=== PATIENT | male | born 1955 | race Caucasian/White ===

== ENCOUNTER 2016-06-30 23:27 | Emergency (ER) | payer MEDICARE, OTHER ==
[~2016-06-30] VITALS: Ht 170.2 cm; Wt 112.0 kg
[~2016-06-30 23:27] MED LIST: CARD4TAB2 PO
[2016-06-30 23:37] VITALS: BP 146/87; PULSE 94; RESP 18; TEMP 98.1; O2SAT 96
[2016-07-01] MEDS ORDERED: SODIUM CHLORIDE 0.9% FLUSH 5 ML FLUSH IVF PRN
[2016-07-01] MEDS ORDERED: methylPREDNISolone SOD SUCC 125 MG/2 ML VIAL IVP ONE
--- NOTE | 2016-07-01 | PD ---
HPI Chief Complaint: Respiratory Symptoms Time Seen by Provider: 23:50 Travel History International Travel<30 days: No Contact w/Intl Traveler<30days: No History of Present Illness HPI Patient is a 61-year-old male who presents to emergency room for evaluation of cough, congestion, fevers and chills. Patient reports that since Tuesday, he has been wheezing and has had a productive cough. Reports that he has been having subjective fevers and chills. Patient reports that he feels achy all over, reports no sick contacts. Patient reports that he try taking Mucinex for relief of symptoms, reports that Mucinex made him feel sick. Patient reports that he bought amoxicillin from the pet store today and took a dose of this. Patient reports no relief of symptoms at this time. Patient denies any chest pain at this time. Patient reports that he has been feeling so short of breath, he has been feeling near syncopal episodes. Patient also reports that he is HIV positive, he is on antivirals at this time. Patient reports that his HIV is undetectable at this time, reports that his last CD4 count was around 540. PFSH Past Medical History Autoimmune Disease: Yes (HIV) Social History Alcohol Use: No Tobacco Use: No Substance Use: No Allergies-Medications (Allergen,Severity, Reaction): Coded Allergies: No Known Allergies (Unverified , 07/01/16) Reported Meds & Prescriptions Reported Meds & Active Scripts Active Proair Hfa 8.5 GM Inh (Albuterol Sulfate) 90 Mcg/Act Aer 2 Puff INH Q4-6H PRN 108 mcg/actuation Azithromycin 500 Mg Tab 500 Mg PO DAILY Prednisone 20 Mg Tab 20 Mg PO BID 5 Days Cardura (Doxazosin Mesylate) 4 Mg Tab 4 Mg PO DAILY Reported Prezista (Darunavir) 800 Mg Tab 800 Mg PO DAILY Genvoya (Baegdczkffqp-Tffornapqc-Qwarkplfjfsi-Tenofvir) [phone] Mg Tab 1 Tab PO DAILY Review of Systems General / Constitutional: Positive: Fever, Chills Eyes: No: Visual changes HENT: No: Headaches Cardiovascular: No: Chest Pain or Discomfort Respiratory: Positive: Cough, Shortness of Breath, Wheezing Gastrointestinal: No: Abdominal Pain Genitourinary: No: Dysuria Musculoskeletal: No: Pain Skin: No Rash Neurologic: No: Weakness Psychiatric: No: Depression Endocrine: No: Polydipsia Hematologic/Lymphatic: No: Easy Bruising Physical Exam Narrative GENERAL: Patient in moderate distress SKIN: Warm and dry. HEAD: Atraumatic. Normocephalic. EYES: Pupils equal and round. No scleral icterus. No injection or drainage. ENT: No nasal bleeding or discharge. Mucous membranes pink and moist. NECK: Trachea midline. No JVD. CARDIOVASCULAR: Regular rate and rhythm. No murmur appreciated. RESPIRATORY: Patient with diffuse wheezing on exam, patient short of breath on exam GASTROINTESTINAL: Abdomen soft, non-tender, nondistended. Hepatic and splenic margins not palpable. MUSCULOSKELETAL: No obvious deformities. No clubbing. No cyanosis. No edema. NEUROLOGICAL: Awake and alert. No obvious cranial nerve deficits. Motor grossly within normal limits. Normal speech. PSYCHIATRIC: Appropriate mood and affect; insight and judgment normal. Data Data Last Documented VS Orders Complete Blood Count With Diff (06/30/16 23:55) Comprehensive Metabolic Panel (06/30/16 23:55) B-Type Natriuretic Peptide (06/30/16 23:55) Act Partial Throm Time (Ptt) (06/30/16 23:55) Prothrombin Time / Inr (Pt) (06/30/16 23:55) Magnesium (Mg) (06/30/16 23:55) Ckmb (Isoenzyme) Profile (06/30/16 23:55) Troponin I (06/30/16 23:55) Urinalysis - C+S If Indicated (06/30/16 23:55) Influenzae A/B Antigen (06/30/16 23:55) Blood Culture (06/30/16 23:55) Iv Access Insert/Monitor (06/30/16 23:55) Electrocardiogram (06/30/16 23:55) Ecg Monitoring (06/30/16 23:55) Oximetry (06/30/16 23:55) Chest, Single Ap (06/30/16 23:55) Sodium Chloride 0.9% Flush (Ns Flush) (07/01/16 00:00) Methylprednisolone So Succ Inj (Solumedr (07/01/16 00:00) Albuterol-Ipratropium Neb (Duoneb Neb) (07/01/16 00:00) Lactic Acid Sepsis Protocol (07/01/16 00:17) Lactic Acid (07/01/16 00:17) CKMB (07/01/16 00:00) CKMB% (07/01/16 00:00) Azithromycin Inj (Zithromax Inj) (07/01/16 01:30) Ceftriaxone Inj (Rocephin Inj) (07/01/16 01:30) Albuterol Neb (Albuterol Neb) (07/01/16 02:45) Labs MDM Medical Decision Making Medical Screen Exam Complete: Yes Emergency Medical Condition: Yes Interpretation(s) Vital Signs Date Time Temp Pulse Resp B/P Pulse Ox O2 Delivery O2 Flow Rate FiO2 06/30/16 23:37 98.1 94 18 146/87 96 Differential Diagnosis Pneumonia, influenza, acute bronchitis, pneumothorax, arrhythmia, electrolyte abnormality Narrative Course Patient is a 61-year-old male with history of HIV which is undetectable, who presents to emergency room with complaints of increased cough, congestion, shortness of breath and wheezing since Tuesday. Patient denies any sick contacts, reports that he isn't feeling increasingly short of breath and reports that the buqj-jak-oljsppb medicines has not helped with his symptoms. Patient reports that his fevers are subjective, he isn't taking Tylenol to help with his fevers. Patient did take one dose of amoxicillin today as he has this for his fish. Patient is wheezing on exam, patient with moderate respiratory distress. 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 EKG ordered. IV steroids as well as nebulizer treatments ordered for patient. Labs as well as chest xray and blood cultures ordered Laboratory Tests Test 07/01/16 00:00 White Blood Count 4.3 TH/MM3 (4.0-11.0) Red Blood Count 4.83 MIL/MM3 (4.50-5.90) Hemoglobin 14.4 GM/DL (13.0-17.0) Hematocrit 43.6 % (39.0-51.0) Mean Corpuscular Volume 90.2 FL (80.0-100.0) Mean Corpuscular Hemoglobin 29.8 PG (27.0-34.0) Mean Corpuscular Hemoglobin 33.0 % Concent (32.0-36.0) Red Cell Distribution Width 14.6 % (11.6-17.2) Platelet Count 199 TH/MM3 (150-450) Mean Platelet Volume 7.9 FL (7.0-11.0) Neutrophils (%) (Auto) 40.5 % (16.0-70.0) Lymphocytes (%) (Auto) 39.2 % (9.0-44.0) Monocytes (%) (Auto) 16.5 % (0.0-8.0) Eosinophils (%) (Auto) 3.2 % (0.0-4.0) Basophils (%) (Auto) 0.6 % (0.0-2.0) Neutrophils # (Auto) 1.7 TH/MM3 (1.8-7.7) Lymphocytes # (Auto) 1.8 TH/MM3 (1.0-4.8) Monocytes # (Auto) 0.7 TH/MM3 (0-0.9) Eosinophils # (Auto) 0.1 TH/MM3 (0-0.4) Basophils # (Auto) 0.0 TH/MM3 (0-0.2) CBC Comment DIFF FINAL Differential Comment Prothrombin Time 11.4 SEC (9.8-11.6) Prothromb Time International 1.0 RATIO Ratio Activated Partial 27.4 SEC Thromboplast Time (24.3-30.1) Sodium Level 143 MEQ/L (136-145) Potassium Level 3.8 MEQ/L (3.5-5.1) Chloride Level 108 MEQ/L (98-107) Carbon Dioxide Level 26.7 MEQ/L (21.0-32.0) Anion Gap 8 MEQ/L (5-15) Blood Urea Nitrogen 15 MG/DL (7-18) Creatinine 1.00 MG/DL (0.60-1.30) Estimat Glomerular Filtration 76 ML/MIN (>89) Rate Random Glucose 97 MG/DL (74-106) Lactic Acid Level 0.8 mmol/L (0.4-2.0) Calcium Level 7.9 MG/DL (8.5-10.1) Magnesium Level 2.0 MG/DL (1.5-2.5) Total Bilirubin 0.5 MG/DL (0.2-1.0) Aspartate Amino Transf 19 U/L (15-37) (AST/SGOT) Alanine Aminotransferase 28 U/L (12-78) (ALT/SGPT) Alkaline Phosphatase 47 U/L (45-117) Total Creatine Kinase 280 U/L (39-308) Creatine Kinase MB 1.2 NG/ML (0.5-3.6) Troponin I LESS THAN 0.02 NG/ML (0.02-0.05) B-Type Natriuretic Peptide 5 PG/ML (0-100) Total Protein 6.9 GM/DL (6.4-8.2) Albumin 3.6 GM/DL (3.4-5.0) Microbiology Date/Time Procedure Status Source Growth 07/01/16 00:00 Aerobic Blood Culture Received Blood Peripheral Pending 07/01/16 00:00 Anaerobic Blood Culture Received Blood Peripheral Pending 07/01/16 00:15 Aerobic Blood Culture Received Blood Peripheral Pending 07/01/16 00:15 Anaerobic Blood Culture Received Blood Peripheral Pending 07/01/16 00:15 Influenza Types A,B Antigen (ELKIN) - Final Complete Nasal Aspirate NEGATIVE FOR FLU A AND B ANTIGEN.... Last Impressions Chest X-Ray 06/30/16 0995 Signed Impressions: Service Date/Time: June 00:06 - CONCLUSION: No acute cardiopulmonary disease identified. Bradley Downey MD Labs reviewed WBC 4.3 with no shift, lactic acid is 0.8, bmp: wnl, influenza neg bc pending X-ray of chest with no acute cardiopulmonary disease Patient is feeling 100% better at this time. Patient reports that he will acute discharge at this time. Patient does have an appointment with his primary care doctor on Tuesday, he'll bring a copy of all his lab work and x- rays to his doctor's appointment. Patient will follow-up with cultures today. Signs and symptoms of when to return to the emergency room was reviewed with patient in detail. Patient very appreciative of care. Diagnosis Primary Impression: Acute bronchitis Qualified Code: J20.9 - Acute bronchitis, unspecified organism Patient Instructions: General Instructions Departure Forms: Tests/Procedures, Work Release Enter return to work date: Jul 05, 2016 Additional Instructions: Please provide patient with a copy of his labwork at discharge Please take all medications as prescribed Please follow-up with your primary care doctor as scheduled Please follow-up with all cultures from today Return to the emergency room as needed or if symptoms progress or worsen Scripts Albuterol 8.5 GM Inh (Proair Hfa 8.5 GM Inh)90 Mcg/Act Aer2 Puff INH Q4-6H PRN ( SHORTNESS OF BREATH) #1 INHALER Ref 0 108 mcg/actuation Prov:Kim Hein DO 07/01/16 Azithromycin 500 Mg Sud116 Mg PO DAILY #7 TAB Ref 0 Prov:Kim Hein DO 07/01/16 Prednisone 20 Mg Tab20 Mg PO BID 5 Days Ref 0 Prov:Kim Hein DO 07/01/16 Disposition: 01 DISCHARGE HOME Condition: Stable Kim Hein DO Jul 01, 2016 00:00 Total Bilirubin 0.5 MG/DL (0.2-1.0) Aspartate Amino Transf 19 U/L (15-37) (AST/SGOT) Alanine Aminotransferase 28 U/L (12-78) (ALT/SGPT) Alkaline Phosphatase 47 U/L (45-117) Total Creatine Kinase 280 U/L (39-308) Creatine Kinase MB 1.2 NG/ML (0.5-3.6) Troponin I LESS THAN 0.02 NG/ML (0.02-0.05) B-Type Natriuretic Peptide 5 PG/ML (0-100) Total Protein 6.9 GM/DL (6.4-8.2) Albumin 3.6 GM/DL (3.4-5.0) Microbiology Date/Time Procedure Status Source Growth 07/01/16 00:00 Aerobic Blood Culture Received Blood Peripheral Pending 07/01/16 00:00 Anaerobic Blood Culture Received Blood Peripheral Pending 07/01/16 00:15 Aerobic Blood Culture Received Blood Peripheral Pending 07/01/16 00:15 Anaerobic Blood Culture Received Blood Peripheral Pending 07/01/16 00:15 Influenza Types A,B Antigen (ELKIN) - Final Complete Nasal Aspirate NEGATIVE FOR FLU A AND B ANTIGEN.... Last Impressions Chest X-Ray 06/30/16 0533 Signed Impressions: Service Date/Time: June 00:06 - CONCLUSION: No acute cardiopulmonary disease identified. Bradley Downey MD Labs reviewed WBC 4.3 with no shift, lactic acid is 0.8, bmp: wnl, influenza neg bc pending X-ray of chest with no acute cardiopulmonary disease Patient is feeling 100% better at this time. Patient reports that he will acute discharge at this time. Patient does have an appointment with his primary care doctor on Tuesday, he'll bring a copy of all his lab work and x- rays to his doctor's appointment. Patient will follow-up with cultures today. Signs and symptoms of when to return to the emergency room was reviewed with patient in detail. Patient very appreciative of care. Diagnosis Primary Impression: Acute bronchitis Qualified Code: J20.9 - Acute bronchitis, unspecified organism Patient Instructions: General Instructions Departure Forms: Tests/Procedures, Work Release Enter return to work date: Jul 05, 2016 Additional Instructions: Please provide patient with a copy of his labwork at discharge Please take all medications as prescribed Please follow-up with your primary care doctor as scheduled Please follow-up with all cultures from today Return to the emergency room as needed or if symptoms progress or worsen Scripts Albuterol 8.5 GM Inh (Proair Hfa 8.5 GM Inh)90 Mcg/Act Aer2 Puff INH Q4-6H PRN ( SHORTNESS OF BREATH) #1 INHALER Ref 0 108 mcg/actuation Prov:Kim Hein DO 07/01/16 Azithromycin 500 Mg [id number] Mg PO DAILY #7 TAB Ref 0 Prov:Kim Hein DO 07/01/16 Prednisone 20 Mg Tab20 Mg PO BID 5 Days Ref 0 Prov:Kim Hein DO 07/01/16 Disposition: 01 DISCHARGE HOME Condition: Stable Kim Hein DO Jul 01, 2016 00:00
[2016-07-01] MEDS: RESP: ALBUTEROL 2.5 MG/IPRATROPIUM 0.5 MG NEB (SCH) INH (00:14)
[2016-07-01 00:20] VITALS: O2SAT 96
[2016-07-01 00:30] VITALS: BP 127/73; PULSE 82; RESP 20; O2SAT 96
[2016-07-01 00:43] LABS: AUTOMATED NEUTROPHIL # 1.7 TH/MM3 (1.8-7.7); BASOPHIL % 0.6 % (0.0-2.0); EOSINOPHIL # 0.1 TH/MM3 (0-0.4); EOSINOPHIL % 3.2 % (0.0-4.0); HEMATOCRIT 43.6 % (39.0-51.0); HEMO FLAGS DIFF FINAL; LYMPH % 39.2 % (9.0-44.0); LYMPHOCYTE # 1.8 TH/MM3 (1.0-4.8); MEAN CELL VOLUME 90.2 FL (80.0-100.0); MEAN CORPUSCULAR HEMOGLOBIN 29.8 PG (27.0-34.0); MONO % 16.5 % (0.0-8.0); NEUT % 40.5 % (16.0-70.0); PLATELET COUNT 199 TH/MM3 (150-450); RED BLOOD COUNT 4.83 MIL/MM3 (4.50-5.90); RED CELL DISTRIBUTION WIDTH 14.6 % (11.6-17.2); WHITE BLOOD COUNT 4.3 TH/MM3 (4.0-11.0)
--- NOTE | 2016-07-01 00:44 | RADHPO ---
EXAM DATE/TIME: 07/01/2016 00:06 [facility] COMPARISON: No previous studies available for comparison. INDICATIONS : Cough, chest congestion for 4 days MEDICAL HISTORY : None. SURGICAL HISTORY : None. ENCOUNTER: Initial ACUITY: 4 - 6 days PAIN SCORE: 0/10 LOCATION: Bilateral chest FINDINGS: Single AP view of the chest. The lungs are clear. Cardiomediastinal silhouette within normal limits. No evidence of pleural effusion or pneumothorax. CONCLUSION: No acute cardiopulmonary disease identified. Bradley Downey MD on July 01, 2016 at 0:42 Board Certified Radiologist. This report was verified electronically.
[2016-07-01 00:55] LABS: CHLORIDE 108 MEQ/L (98-107); POTASSIUM 3.8 MEQ/L (3.5-5.1); SODIUM (NA) 143 MEQ/L (136-145)
[2016-07-01 00:58] LABS: ANION GAP 8 MEQ/L (5-15); BICARBONATE 26.7 MEQ/L (21.0-32.0); BLOOD UREA NITROGEN 15 MG/DL (7-18)
[2016-07-01 01:01] LABS: ALT (GPT) 28 U/L (12-78); APTT (PATIENT) 27.4 SEC (24.3-30.1); AST (GOT) 19 U/L (15-37); GLOMERULAR FILTRATION RATE 76 ML/MIN (>89); PROTHROMBIN TIME - PATIENT 11.4 SEC (9.8-11.6)
[2016-07-01 01:03] LABS: TOTAL BILIRUBIN ADULT 0.5 MG/DL (0.2-1.0)
[2016-07-01 01:04] LABS: ALKALINE PHOSPHATASE 47 U/L (45-117); CREATINE KINASE 280 U/L (39-308)
[2016-07-01 01:17] LABS: CKMB 1.2 NG/ML (0.5-3.6)
[2016-07-01 01:30] VITALS: BP 115/65; PULSE 88; RESP 20; O2SAT 96
[2016-07-01] MEDS ORDERED: AZITHROMYCIN INJ 500 MG in SODIUM CHLOR 0.9% 250 ML INJ 250 ML IV ONE (01:30)
[2016-07-01] MEDS ORDERED: cefTRIAXone INJ 1,000 MG in SODIUM CHLORIDE 0.9% INJ 100 ML IV ONE (01:30)
[2016-07-01] MEDS ORDERED: DARU800T PO (02:15)
[2016-07-01] MEDS ORDERED: ELVI1TAB3 PO (02:15)
[2016-07-01 02:30] VITALS: BP 124/82; PULSE 89; RESP 20; O2SAT 97
[2016-07-01] MEDS ORDERED: PRED20 PO (02:37)
[2016-07-01] MEDS ORDERED: AZIT500T2 PO (02:37)
[2016-07-01] MEDS ORDERED: ALBUAER3 INH (02:37)
[2016-07-01] MEDS ORDERED: RESP: ALBUTEROL 2.5 MG/3 ML NEB (SCH) NEB ONE (02:45)
[2016-07-01 03:21] LABS: BLOOD, URINE NEG (NEG); GLUCOSE,URINE NEG (NEG); KETONE, URINE NEG (NEG); NITRITE,URINE NEG (NEG)
[2016-07-01 03:36] LABS: METHOD OF COLLECTION VOIDED; URINE COLOR YELLOW (YELLW/STRAW)
[2016-07-01 03:37] LABS: HYALINE CAST, URINE 0-2 /lpf (RARE); MUCUS URINE MOD /lpf (OCC)
[2016-07-01 03:38] LABS: WBC, URINE 0-2 /hpf (0-5)
[2016-07-01 03:39] LABS: COMMENT (UR) CULT NOT INDICATED; CULTURE IF INDICATED CULT NOT INDICATED
[2016-07-01 04:19] VITALS: BP 143/80; TEMP 98
--- NOTE | 2016-07-01 13:52 | EKG ---
Date Performed: 07/01/2016 Time Performed: 00:08:26 PTAGE: 61 years EKG: Sinus rhythm Left axis deviation rSr'(V1) - probable normal variant Borderline ECG NO PREVIOUS TRACING DOCTOR: Curtis Dinh Interpretating Date/Time 07/01/2016 13:48:54
== END 2016-07-01 04:21 | disposition home or self-care (01) ==
LOC: PHED 23:27
DX: J20.9 Acute bronchitis, unspecified (principal); R94.31 Abnormal electrocardiogram [ECG] [EKG]; R06.2 Wheezing
CPT/HCPCS: 71010; 80053; 81001; 82550; 82552; 83605; 83735; 83880; 84484; 85025; 85610; 85730; 87040; 87804; 93005; 94640; 94664; 96365; 96367; 96375; 99284; J0456; J0696; J2930; J7050; J7613

== ENCOUNTER 2016-09-09 10:37 | Observation (INO) | payer OTHER ==
[~2016-09-09] VITALS: Ht 170.2 cm; Wt 114.0 kg
[2016-09-09] VITALS (9 sets, daily range): BP systolic 121–166; BP diastolic 75–105; PULSE 60–77; RESP 16–24; TEMP 97.7–98.8; O2SAT 96–98
[~2016-09-09 10:37] MED LIST changes: +ALBUAER3 INH; +AZIT500T2 PO; +DARU800T PO; +ELVI1TAB3 PO; +PRED20 PO
--- NOTE | 2016-09-09 10:57 | PD ---
HPI Chief Complaint: Chest Pain Time Seen by Provider: 10:43 Travel History International Travel<30 days: No Contact w/Intl Traveler<30days: No Traveled to known affect area: No History of Present Illness HPI 61-year-old male presents with chest pain intermittently over the past 3 days. He states today while he was getting blood work ordered by his primary after evaluation yesterday he started having numbness to his lower face and into his neck with associated worsening chest pain. He try to see his primary again today but they advised him to come to the emergency room. He states that his symptoms when he was here in June have resolved and this is just been over the past couple of days. He denies taking an aspirin. He denies any prior history of this. He does not follow with a sheep killer. He denies specific modifying factors. Quality is pressure. Severity is moderate. PFSH Past Medical History Autoimmune Disease: Yes (HIV) Anxiety: Yes Depression: Yes Cardiovascular Problems: Yes Congestive Heart Failure: Yes Diminished Hearing: No Immune Disorder: Yes (hiv) Respiratory: Yes (bronchitis ) Immunizations Current: Yes ?: Not Past Surgical History Cholecystectomy: Yes Social History Alcohol Use: No Tobacco Use: No Substance Use: Yes ("Marijuana") Allergies-Medications (Allergen,Severity, Reaction): Coded Allergies: No Known Allergies (Unverified , 09/09/16) Reported Meds & Prescriptions Reported Meds & Active Scripts Active Cardura (Doxazosin Mesylate) 4 Mg Tab 4 Mg PO DAILY Reported Furosemide 20 Mg Tab Unknown Dose PO BID Prezista (Darunavir) 800 Mg Tab 800 Mg PO DAILY Genvoya (Ifdntsyhducr-Odswmbinma-Rohmgdjrwdmg-Tenofvir) [phone] Mg Tab 1 Tab PO DAILY Review of Systems Except as stated in HPI: all other systems reviewed are Neg Physical Exam Narrative GENERAL: Well-nourished, well-developed patient. well appearing SKIN: Warm and dry. HEAD: Normocephalic and atraumatic. EYES: No injection or drainage. ENT: No nasal drainage noted. NECK: Supple, trachea midline. CARDIOVASCULAR: Regular rate and rhythm RESPIRATORY: Breath sounds equal bilaterally. No accessory muscle use. GASTROINTESTINAL: Abdomen soft, non-tender, nondistended. EXTREMITIES: No edema. NEUROLOGICAL: Awake and alert. Motor and sensory grossly within normal limits but notes left lower face feels tingling. Normal speech. Data Data Last Documented VS Vital Signs Date Time Temp Pulse Resp B/P Pulse Ox O2 Delivery O2 Flow Rate FiO2 09/09/16 10:55 75 18 156/105 97 136/87 09/09/16 10:54 Room Air 09/09/16 10:40 97.7 Orders Electrocardiogram (09/09/16 10:50) B-Type Natriuretic Peptide (09/09/16 10:50) Ckmb (Isoenzyme) Profile (09/09/16 10:50) Complete Blood Count With Diff (09/09/16 10:50) Comprehensive Metabolic Panel (09/09/16 10:50) Magnesium (Mg) (09/09/16 10:50) Prothrombin Time / Inr (Pt) (09/09/16 10:50) Act Partial Throm Time (Ptt) (09/09/16 10:50) Troponin I (09/09/16 10:50) Chest, Single Ap (09/09/16 10:50) Ecg Monitoring (09/09/16 10:50) Bilateral Bp Monitoring (09/09/16 10:50) Iv Access Insert/Monitor (09/09/16 10:50) Oximetry (09/09/16 10:50) Sodium Chloride 0.9% Flush (Ns Flush) (09/09/16 11:00) Ct Pulmonary Angiogram (09/09/16 10:50) Ct Brain W/O Iv Contrast(Rout) (09/09/16 ) Iohexol 350 Inj (Omnipaque 350 Inj) (09/09/16 12:20) Aspirin (Aspirin) (09/09/16 12:45) Admit Order (Ed Use Only) (09/09/16 12:45) Labs Laboratory Tests Test 09/09/16 10:50 White Blood Count 5.1 TH/MM3 Red Blood Count 5.25 MIL/MM3 Hemoglobin 15.7 GM/DL Hematocrit 46.9 % Mean Corpuscular Volume 89.4 FL Mean Corpuscular Hemoglobin 29.8 PG Mean Corpuscular Hemoglobin 33.4 % Concent Red Cell Distribution Width 14.3 % Platelet Count 214 TH/MM3 Mean Platelet Volume 7.7 FL Neutrophils (%) (Auto) 44.6 % Lymphocytes (%) (Auto) 41.5 % Monocytes (%) (Auto) 11.2 % Eosinophils (%) (Auto) 1.7 % Basophils (%) (Auto) 1.0 % Neutrophils # (Auto) 2.3 TH/MM3 Lymphocytes # (Auto) 2.1 TH/MM3 Monocytes # (Auto) 0.6 TH/MM3 Eosinophils # (Auto) 0.1 TH/MM3 Basophils # (Auto) 0.1 TH/MM3 CBC Comment DIFF FINAL Differential Comment Prothrombin Time 11.2 SEC Prothromb Time International 1.0 RATIO Ratio Activated Partial 27.2 SEC Thromboplast Time Sodium Level 140 MEQ/L Potassium Level 4.4 MEQ/L Chloride Level 108 MEQ/L Carbon Dioxide Level 27.8 MEQ/L Anion Gap 4 MEQ/L Blood Urea Nitrogen 12 MG/DL Creatinine 1.07 MG/DL Estimat Glomerular Filtration 70 ML/MIN Rate Random Glucose 93 MG/DL Calcium Level 8.8 MG/DL Magnesium Level 2.3 MG/DL Total Bilirubin 0.6 MG/DL Aspartate Amino Transf 21 U/L (AST/SGOT) Alanine Aminotransferase 31 U/L (ALT/SGPT) Alkaline Phosphatase 49 U/L Total Creatine Kinase 82 U/L Troponin I LESS THAN 0.02 NG/ML B-Type Natriuretic Peptide 17 PG/ML Total Protein 7.4 GM/DL Albumin 4.1 GM/DL MDM Medical Decision Making Medical Screen Exam Complete: Yes Emergency Medical Condition: Yes Medical Record Reviewed: Yes (pmh confirmed) Interpretation(s) EKG is sinus rhythm with incomplete right bundle without STEMI criteria or consecutive T-wave inversion CBC & BMP Diagram 09/09/16 10:50 Last 24 hours Impressions Chest X-Ray 09/09/16 1050 Signed Impressions: Service Date/Time: August 10:54 - CONCLUSION: 1. No active disease. Mildly tortuous aorta. Remote, healed right clavicle fracture. Chan Llamas MD CT Angiography 09/09/16 1050 Signed Impressions: Service Date/Time: August 12:02 - CONCLUSION: No evidence of pulmonary embolism. Lalo Medellin MD Head CT 09/09/16 0000 Signed Impressions: Service Date/Time: August 11:55 - CONCLUSION: Normal examination. Lalo Medellin MD Differential Diagnosis Cardiac, PE, gastritis, musculoskeletal Narrative Course Will check blood work, chest x-ray, CT pulmonary and brain and reevaluate ed workup no acute, agrees to observation, given aspirin Physician Communication Physician Communication dr aviles agrees to admit Diagnosis Primary Impression: Chest pain Qualified Code: R07.9 - Chest pain, unspecified type Additional Impression: Left facial numbness Admitting Information Admitting Physician Requests: Observation Janice Gutierrez MD September 09, 2016 10:57
[2016-09-09] MEDS ORDERED: SODIUM CHLORIDE 0.9% FLUSH 10 ML FLUSH IVF PRN (11:00)
--- NOTE | 2016-09-09 11:11 | RADRPT ---
EXAM DATE/TIME: 09/09/2016 10:54 [facility] COMPARISON: CHEST SINGLE AP, July 01, 2016, 0:06. INDICATIONS : Chest pain MEDICAL HISTORY : None. SURGICAL HISTORY : None. ENCOUNTER: Initial ACUITY: 1 day PAIN SCORE: 7/10 LOCATION: Bilateral chest FINDINGS: A single view of the chest demonstrates the lungs to be symmetrically aerated without evidence of mas s, infiltrate or effusion. The cardiomediastinal contours are unremarkable. Osseous structures are intact with remote healed right clavicle fracture. CONCLUSION: 1. No active disease. Mildly tortuous aorta. Remote, healed right clavicle fracture. Chan Llamas MD on September 09, 2016 at 11:08 Board Certified Radiologist. This report was verified electronically.
[2016-09-09 11:12] LABS: AUTOMATED NEUTROPHIL # 2.3 TH/MM3 (1.8-7.7); BASOPHIL # 0.1 TH/MM3 (0-0.2); EOSINOPHIL # 0.1 TH/MM3 (0-0.4); EOSINOPHIL % 1.7 % (0.0-4.0); HEMATOCRIT 46.9 % (39.0-51.0); HEMO FLAGS DIFF FINAL; LYMPH % 41.5 % (9.0-44.0); LYMPHOCYTE # 2.1 TH/MM3 (1.0-4.8); MEAN CELL VOLUME 89.4 FL (80.0-100.0); MEAN CORPUSCULAR HEMOGLOBIN 29.8 PG (27.0-34.0); MEAN CORPUSCULAR HGB CONC 33.4 % (32.0-36.0); MONO % 11.2 % (0.0-8.0); NEUT % 44.6 % (16.0-70.0); PLATELET COUNT 214 TH/MM3 (150-450); RED BLOOD COUNT 5.25 MIL/MM3 (4.50-5.90); RED CELL DISTRIBUTION WIDTH 14.3 % (11.6-17.2); WHITE BLOOD COUNT 5.1 TH/MM3 (4.0-11.0)
[2016-09-09 11:19] LABS: APTT (PATIENT) 27.2 SEC (24.3-30.1); PROTHROMBIN TIME - PATIENT 11.2 SEC (9.8-11.6)
[2016-09-09 11:30] LABS: ALT (GPT) 31 U/L (12-78); ANION GAP 4 MEQ/L (5-15); AST (GOT) 21 U/L (15-37); BICARBONATE 27.8 MEQ/L (21.0-32.0); BLOOD UREA NITROGEN 12 MG/DL (7-18); CHLORIDE 108 MEQ/L (98-107); GLOMERULAR FILTRATION RATE 70 ML/MIN (>89); MAGNESIUM 2.3 MG/DL (1.5-2.5); POTASSIUM 4.4 MEQ/L (3.5-5.1); SODIUM (NA) 140 MEQ/L (136-145)
[2016-09-09 11:34] LABS: ALKALINE PHOSPHATASE 49 U/L (45-117); TOTAL BILIRUBIN ADULT 0.6 MG/DL (0.2-1.0)
[2016-09-09 11:37] LABS: CREATINE KINASE 82 U/L (39-308)
[2016-09-09] MEDS ORDERED: FURO20TA PO (11:37)
[2016-09-09] MEDS ORDERED: IOHEXOL 350 MG/ML 10 ML VIAL (for RAD DIAG) IV ONE (12:20)
--- NOTE | 2016-09-09 12:28 | RADRPT ---
EXAM DATE/TIME: 09/09/2016 11:55 [facility] COMPARISON: No previous studies available for comparison. INDICATIONS : Left side face and neck pain for about a week RADIATION DOSE: 56.38 CTDIvol (mGy) MEDICAL HISTORY : Cardiovascular disease. SURGICAL HISTORY : Cholecystectomy. ENCOUNTER: Initial ACUITY: 3 days PAIN SCALE: 3/10 LOCATION: Left facial TECHNIQUE: Multiple contiguous axial images were obtained of the head. Using automated exposure control and adj ustment of the mA and/or kV according to patient size, radiation dose was kept as low as reasonably a chievable to obtain optimal diagnostic quality images. FINDINGS: CEREBRUM: The ventricles are normal for age. No evidence of midline shift, mass lesion, hemorrhage or acute in farction. No extra-axial fluid collections are seen. POSTERIOR FOSSA: The cerebellum and brainstem are intact. The 4th ventricle is midline. The cerebellopontine angle i s unremarkable. EXTRACRANIAL: The visualized portion of the orbits is intact. SKULL: The calvaria is intact. No evidence of skull fracture. CONCLUSION: Normal examination. Lalo Medellin MD on September 09, 2016 at 12:19 Board Certified Radiologist. This report was verified electronically.
--- NOTE | 2016-09-09 12:39 | RADRPT ---
EXAM DATE/TIME: 09/09/2016 12:02 [facility] COMPARISON: No previous studies available for comparison. INDICATIONS : Lt neck and chest pain for about a week. IV CONTRAST: 65 cc Omnipaque 350 (iohexol) IV RADIATION DOSE: 24.09 CTDIvol (mGy) MEDICAL HISTORY : Cardiovascular disease. SURGICAL HISTORY : Cholecystectomy. ENCOUNTER: Initial ACUITY: 4 - 6 days PAIN SCALE: 3/10 LOCATION: Left chest TECHNIQUE: Volumetric scanning of the chest was performed using a pulmonary embolism protocol MIP images were re constructed. Using automated exposure control and adjustment of the mA and/or kV according to patien t size, radiation dose was kept as low as reasonably achievable to obtain optimal diagnostic quality images. FINDINGS: PULMONARY ARTERIES: No filling defects are seen in the pulmonary arteries through the segmental level. LUNGS: Minimal left upper lobe atelectasis. No evidence of mass or nodule. No lobar consolidation. PLEURAE: There is no pleural thickening or pleural effusion. MEDIASTINUM: There is good visualization of the great vessels of the middle mediastinum. No evidence of mediastin al or hilar adenopathy/mass. MUSCULOSKELETAL: Within normal limits for patient age. MISCELLANEOUS: The visualized upper abdominal organs demonstrate no acute abnormality. CONCLUSION: No evidence of pulmonary embolism. Lalo Medellin MD on September 09, 2016 at 12:34 Board Certified Radiologist. This report was verified electronically.
[2016-09-09] MEDS ORDERED: ASPIRIN 325 MG TAB PO ONE (12:45)
[2016-09-09] MEDS ORDERED: ACETAMINOPHEN 500 MG CPLT PO PRN (14:45)
[2016-09-09] MEDS ORDERED: MORPHINE SULFATE 8 MG/ML INJ IV PUSH PRN (14:45)
[2016-09-09] MEDS ORDERED: MORPHINE SULFATE 4 MG/ML INJ IV PRN (14:45)
[2016-09-09] MEDS ORDERED: NITROGLYCERIN 0.4 MG SL 25 TABS/BTL SL PRN (14:45)
[2016-09-09] MEDS ORDERED: SODIUM CHLORIDE 0.9% FLUSH 10 ML FLUSH IV FLUSH PRN (14:45)
--- NOTE | 2016-09-09 15:13 | HHI.HP ---
[facility] Unknown Admission Diagnosis chest pain Diagnoses: (1) TIA (transient ischemic attack) (2) Left facial numbness (3) Atypical chest pain (4) HIV disease Chief Complaint: Chest pressure, left facial numbness Travel History International Travel<30 Days: No Contact w/Intl Traveler <30 Da: No Traveled to Known Affected Are: No History of Present Illness 61-year-old male with a history of HIV presented to the ED for evaluation of 3 days duration of chest pressure associated with shortness of breath with exertion as well as an acute onset of left facial numbness extending down to his left arm and associated with left blurry eye all started around 8 AM this morning. He did call his PCPs office this morning who advised him to seek medical attention to the nearest emergency department. Patient is unsure if slurred speech is present. He denied any diaphoresis. Patient states , he was seen by his PCP yesterday 09/08/16 and was started on Lasix 20 mg by mouth twice a day secondary to worsening shortness of breath with exertion as well as bilateral lower extremities swelling. During my exam, he reported resolution of chest pressure however continue to have left facial numbness but denies any headaches. He has no complaint of GI bleed. Review of Systems Except as stated in HPI: all other systems reviewed are Neg Past Family Social History Past Medical History Autoimmune Disease: Yes (HIV) Anxiety: Yes Depression: Yes Cardiovascular Problems: Yes Congestive Heart Failure: Yes Past Surgical History Cholecystectomy: Yes Reported Medications Cardura (Doxazosin Mesylate) 4 Mg Tab 4 Mg PO DAILY Furosemide 20 Mg Tab Unknown Dose PO BID Prezista (Darunavir) 800 Mg Tab 800 Mg PO DAILY Genvoya (Undoyfqvqrkn-Kaiulcvghc-Aecrhbdfjeut-Tenofvir) [phone] Mg Tab 1 Tab PO DAILY Allergies: Coded Allergies: No Known Allergies (Unverified , 09/09/16) Family History Mother and Grandmother both had CVA Father unknown Social History Alcohol Use: No Tobacco Use: No Substance Use: Yes ("Marijuana") Physical Exam Vital Signs Vital Signs Date Time Temp Pulse Resp B/P Pulse Ox O2 Delivery O2 Flow Rate FiO2 09/09/16 10:55 75 18 156/105 97 136/87 09/09/16 10:54 97 Room Air 09/09/16 10:46 97 Room Air 09/09/16 10:40 97.7 73 16 166/104 98 Physical Exam GENERAL: This is a well-nourished, well-developed patient, in no apparent distress. SKIN: No rashes, ecchymoses or lesions. Cool and dry. HEAD: Atraumatic. Normocephalic. No temporal or scalp tenderness. EYES: Pupils equal round and reactive. Extraocular motions intact. No scleral icterus. No injection or drainage. ENT: Nose without bleeding, purulent drainage or septal hematoma. Throat without erythema, tonsillar hypertrophy or exudate. Uvula midline. Airway patent. NECK: Trachea midline. No JVD or lymphadenopathy. Supple, nontender, no meningeal signs. CARDIOVASCULAR: Regular rate and rhythm without murmurs, gallops, or rubs. RESPIRATORY: Clear to auscultation. Breath sounds equal bilaterally. No wheezes , rales, or rhonchi. GASTROINTESTINAL: Abdomen soft, non-tender, nondistended. No hepato-splenomegaly , or palpable masses. No guarding. MUSCULOSKELETAL: Extremities without clubbing, cyanosis, or edema. No joint tenderness, effusion, or edema noted. No calf tenderness. Negative Homans sign bilaterally. NEUROLOGICAL: Awake and alert. Cranial nerves II through XII intact. Motor and sensory grossly within normal limits. Five out of 5 muscle strength in all muscle groups. Normal speech. Laboratory Laboratory Tests Test 09/09/16 10:50 White Blood Count 5.1 Red Blood Count 5.25 Hemoglobin 15.7 Hematocrit 46.9 Mean Corpuscular Volume 89.4 Mean Corpuscular Hemoglobin 29.8 Mean Corpuscular Hemoglobin 33.4 Concent Red Cell Distribution Width 14.3 Platelet Count 214 Mean Platelet Volume 7.7 Neutrophils (%) (Auto) 44.6 Lymphocytes (%) (Auto) 41.5 Monocytes (%) (Auto) 11.2 Eosinophils (%) (Auto) 1.7 Basophils (%) (Auto) 1.0 Neutrophils # (Auto) 2.3 Lymphocytes # (Auto) 2.1 Monocytes # (Auto) 0.6 Eosinophils # (Auto) 0.1 Basophils # (Auto) 0.1 CBC Comment DIFF FINAL Differential Comment Prothrombin Time 11.2 Prothromb Time International 1.0 Ratio Activated Partial 27.2 Thromboplast Time Sodium Level 140 Potassium Level 4.4 Chloride Level 108 Carbon Dioxide Level 27.8 Anion Gap 4 Blood Urea Nitrogen 12 Creatinine 1.07 Estimat Glomerular Filtration 70 Rate Random Glucose 93 Calcium Level 8.8 Magnesium Level 2.3 Total Bilirubin 0.6 Aspartate Amino Transf 21 (AST/SGOT) Alanine Aminotransferase 31 (ALT/SGPT) Alkaline Phosphatase 49 Total Creatine Kinase 82 Troponin I LESS THAN 0.02 B-Type Natriuretic Peptide 17 Total Protein 7.4 Albumin 4.1 Result Diagram: 09/09/16 1050 09/09/16 1050 Imaging Last Impressions Chest X-Ray 09/09/16 1050 Signed Impressions: Service Date/Time: August 10:54 - CONCLUSION: 1. No active disease. Mildly tortuous aorta. Remote, healed right clavicle fracture. Chan Llamas MD CT Angiography 09/09/16 1050 Signed Impressions: Service Date/Time: August 12:02 - CONCLUSION: No evidence of pulmonary embolism. Lalo Medellin MD Head CT 09/09/16 0000 Signed Impressions: Service Date/Time: August 11:55 - CONCLUSION: Normal examination. Lalo Medellin MD Assessment and Plan Problem List: (1) TIA (transient ischemic attack) ICD Code: G45.9 Status: Acute (2) Left facial numbness ICD Code: R20.0 Status: Acute (3) Atypical chest pain ICD Code: R07.89 Status: Acute (4) HIV disease ICD Code: B20 Status: Acute Assessment and Plan 61 years old man with TIA/Facial paresthesia: Treatment per stroke protocol -Continue with aspirin -Start statin therapy -NIHSS, Neuro checks, Monitor on telemetry -PT/OT/ST evaluations, consult rehab medicine -allow permissive HTN, IV Vasotec and IV labetalol if SBP >220 -Check lipid profile and HgbA1c -Check carotid U/S -Head CT 09/09/16 noted and review by me with Normal examination. -Check brain MRI/MRA -Check echocardiogram and Telemetry; consider Holter monitoring -Neurology consultation pending Atypical chest pain -CT angiography noted and reviewed by me with No evidence of pulmonary embolism. -Chest x-ray noted and reviewed by me No active disease. Mildly tortuous aorta. -ACS rule out per protocol with serial cardiac enzyme and EKGs -Check 2-D echo and consider Lexiscan stress test if abnormal cardiac enzymes or EKG . May consider cardiology consultation -Continue aspirin, check lipid profile and start statin accordingly.start nitroglycerin sublingual when necessary -Permissive hypertension secondary to above questionable TIA Questionable Newly diagnosed CHF as of 09/08/16 -BNP of 17 and chest x-ray without any evidence of pulmonary congestion therefore not certain of this diagnosis however will check 2-D echo -Will hold Lasix HIV Resume outpatient medications DVT prophylaxis: Bilateral SCDs GI prophylaxis: PPI Code Status Full code Discussed Condition With Patient, ED physician Adrian Martinez MD September 09, 2016 15:12
[2016-09-09] MEDS ORDERED: ENALAPRILAT 1.25 MG/ML VIAL IV PRN (15:15)
--- NOTE | 2016-09-09 16:33 | EKG ---
Date Performed: 09/09/2016 Time Performed: 10:41:48 PTAGE: 61 years EKG: Sinus rhythm BORDERLINE LEFT AXIS DEVIATION INCOMPLETE RIGHT BUNDLE BRANCH BLOCK BORDERLINE ECG PREVIOUS TRACING : 07/01/2016 00.08 Compared to prior tracing no significant change DOCTOR: Rigo Haddad Interpretating Date/Time 09/09/2016 16:32:00
--- NOTE | 2016-09-09 17:44 | RADRPT ---
EXAM DATE/TIME: 09/09/2016 17:18 [facility] COMPARISON: No previous studies available for comparison. INDICATIONS : CVA. MEDICAL HISTORY : Hypertension. Congestive heart failure. SURGICAL HISTORY : Cholecystectomy. ENCOUNTER: Initial ACUITY: 1 day PAIN SCORE: 0/10 LOCATION: Head. TECHNIQUE: Multiplanar, multisequence MRI of the brain was performed without contrast. FINDINGS: CEREBRUM: The ventricles are normal for age. No evidence of midline shift, mass lesion, hemorrhage or acute in farction. No extraaxial fluid collections are seen. The pituitary gland and suprasellar cistern are normal in configuration. WHITE MATTER: No significant signal abnormalities are seen in the white matter. POSTERIOR FOSSA: The cerebellum and brainstem are intact. The 4th ventricle is midline. The cerebellopontine angle is unremarkable. The cerebellar tonsils are normal in position. DIFFUSION IMAGING: No focal areas of restricted diffusion are seen. No evidence of acute infarction. EXTRACRANIAL: The visualized portions of the orbits and paranasal sinuses are unremarkable. CONCLUSION: Normal examination. Lalo Medellin MD on September 09, 2016 at 17:42 Board Certified Radiologist. This report was verified electronically.
--- NOTE | 2016-09-09 17:46 | RADRPT ---
EXAM DATE/TIME: 09/09/2016 17:18 [facility] COMPARISON: No previous studies available for comparison. INDICATIONS : CVA. MEDICAL HISTORY : Congestive heart failure. Hypertension. SURGICAL HISTORY : Cholecystectomy. ENCOUNTER: Initial ACUITY: 1 day PAIN SCORE: 0/10 LOCATION: Head. Please note a normal MRA of the brain does not entirely exclude the possibility of a small aneurysm, nor the possibility of distal intracranial vessel disease. TECHNIQUE: 3D time of flight MRA was performed. Source images, multiplanar STS MIP, and 3D volume MIP reconstru ctions were reviewed. FINDINGS: There is excellent visualization of the major intracranial arteries out to the second-order branch ve ssels. There is no evidence for aneurysm, vessel truncation or stenosis, and no evidence for vascula r malformation. CONCLUSION: Normal examination. Lalo Medellin MD on September 09, 2016 at 17:43 Board Certified Radiologist. This report was verified electronically.
[2016-09-09] MEDS: ALUMINUM/MAGNESIUM/SIMETH 30 ML CUP PO SCH ×2 (17:47→22:08)
--- NOTE | 2016-09-09 18:08 | RADRPT ---
EXAM DATE/TIME: 09/09/2016 15:47 [facility] COMPARISON: No previous studies available for comparison. INDICATIONS : Cerebrovascular accident. MEDICAL HISTORY : Congestive heart failure. HIV. Depression. Anxiety. SURGICAL HISTORY : Cholecystectomy. ENCOUNTER: Initial ACUITY: 1 day PAIN SCORE: 0/10 LOCATION: Bilateral neck PEAK SYSTOLIC VELOCITIES (cm/sec): ICA/CCA RATIO: Right: 1.2 Left: 1.0 ICA: Right: 67 Left: 65 CCA: Right: 56 Left: 69 ECA: Right: 59 Left: 39 VERTEBRAL: Right: 37 antegrade Left: 58 antegrade Elevated flow velocities and ICA/CCA ratios have been found to correlate with increased degrees of vessel stenosis, calculated as percentage of diameter relative to a normal segment of distal ICA/CCA FINDINGS: RIGHT CAROTID: No significant stenosis is visualized. The waveforms are within normal limits. LEFT CAROTID: No significant stenosis is visualized. The waveforms are within normal limits. VERTEBRAL ARTERIES: Antegrade flow is seen in both vertebral arteries. MISCELLANEOUS: None. CONCLUSION: No evidence of flow-limiting carotid stenosis. Lalo Medellin MD on September 09, 2016 at 18:06 Board Certified Radiologist. This report was verified electronically.
--- NOTE | 2016-09-09 18:47 | MB ---
cc: MARY MATTSON MD DATE OF CONSULTATION 09/09/16 1955 6 REASON FOR CONSULTATION TIA. HISTORY OF PRESENT ILLNESS This is a 61-year-old man who came in initially with some chest pressure, shortness of breath. It started about 10 o'clock in the morning when he started feeling numbness in the left face and blurry vision going down to his arm lasting for maybe 30 minutes. A couple days prior, he also had some shortness of breath, some swelling in the legs. He was diagnosed by his PCP, possible CHF, given some Lasix. The shortness of breath did not improve as well as the swelling and he came into the ED for evaluation. Currently, he still has some shortness of breath but no numbness, tingling or weakness. PAST MEDICAL HISTORY 1. History of HIV, 2. Anxiety, 3. Depression, 4. Possible heart disease MEDICATIONS Home meds are 1. Cardura 2. Furosemide 3. 4. Prezista 5. Genvoya ALLERGIES None reported. FAMILY HISTORY Mother and grandmother both had strokes. Father unknown. SOCIAL HISTORY Only for marijuana. PHYSICAL EXAMINATION VITAL SIGNS: Temperature of 97.7, pulse 62, respiratory rate 20, blood pressure 134/83, satting at 97% on room air. NECK: Supple. No bruits. HEART: Regular. NEUROLOGIC: He is awake and alert. He is oriented and fluent. His pupils are reactive. Visual waterman are full. Face symmetrical. Tongue midline. Normal facial sensation bilaterally in all territories Motor: There is no weakness. No drift. No leg lag. 5/5 strength in both upper and lower extremities. Cerebellar testing is normal. DTRs are 2+. Sensory is normal. Toes downgoing. Gait is withheld. LABORATORY DATA Reviewed. His CBC is unremarkable. Coag panel was normal. Chemistries - GFR 70, troponin less than 0.02. BNP 17, albumin 4.1. IMAGING STUDIES CT angiography - there is no PE. Chest x-ray - No active disease, mildly tortuous aorta, remote healed right clavicle fracture. CT brain - nothing acute, normal. IMPRESSION 1. Possible TIA in a 61-year-old man. Workup is ongoing at this point. 2. Hypertension, possible new onset. RECOMMENDATIONS MRI of the brain, MRA [place] of [place], carotid ultrasound, 2-D echo. He is pending a lipid panel and a hemoglobin A1c. Start him on baby aspirin and place him on a statin. Depending on what his LDL level is, it is to be adjusted. Blood pressure control. If he is still hypertensive, he will need to be on an antihypertensive at discharge. I would also put him on Lovenox for DVT prophylaxis. Continue current care and recommendations will be made depending on findings. MD GLADIS Franco/ /5:12 PM /6:35 PM
[2016-09-09 18:54] LABS: CREATINE KINASE 78 U/L (39-308)
[2016-09-09] MEDS: SODIUM CHLORIDE 0.9% FLUSH 10 ML FLUSH IV FLUSH SCH (22:08)
[2016-09-09] MEDS ORDERED: ATORVASTATIN 10 MG TAB PO SCH (22:15)
[2016-09-09 23:00] LABS: CREATINE KINASE 83 U/L (39-308)
[2016-09-10 03:31] VITALS: BP 137/78; PULSE 69; RESP 19; TEMP 97.8; O2SAT 96
[2016-09-10 07:48] VITALS: BP 118/82; PULSE 64; RESP 20; TEMP 97.4; O2SAT 97
[2016-09-10 07:54] LABS: HDL CHOLESTEROL 33.1 MG/DL (40.0-60.0)
[2016-09-10] MEDS: SODIUM CHLORIDE 0.9% FLUSH 10 ML FLUSH IV FLUSH SCH (08:48)
[2016-09-10] MEDS: ALUMINUM/MAGNESIUM/SIMETH 30 ML CUP PO SCH (08:48)
--- NOTE | 2016-09-10 08:54 | HHI.PR ---
Subjective Remarks Follow-up for dyspnea on exertion. The patient states that his primary problem has been getting short of breath whenever he is walking or swimming. He states his PCP had noted that his ankles were a little swollen, prescribed Lasix, took 1 dose prior to coming to the hospital. He did have some discomfort around his left shoulder, but states that when he touches it he can reproduce the discomfort and thinks that it is a muscle. He denies any chest pain. He denies any problems sleeping flat. He denies any unrestful sleep, snoring, or waking up gasping for air. He denies any further numbness, tingling, or weakness. He feels like the tingling he had was related to anxiety about possibly having CHF. Objective Vitals Vital Signs Date Time Temp Pulse Resp B/P Pulse Ox O2 Delivery O2 Flow Rate FiO2 09/10/16 07:48 97.4 64 20 118/82 97 09/10/16 03:31 97.8 69 19 137/78 96 09/09/16 23:00 77 09/09/16 19:33 98.8 69 18 121/75 96 09/09/16 18:29 97.7 69 19 126/84 96 09/09/16 13:45 62 20 134/83 97 Room Air 09/09/16 11:00 76 20 136/87 97 Room Air 09/09/16 10:55 75 18 156/105 97 136/87 09/09/16 10:55 60 16 156/105 97 Room Air 09/09/16 10:54 97 Room Air 09/09/16 10:46 97 Room Air 09/09/16 10:40 97.7 73 16 166/104 98 09/09/16 10:40 60 24 166/104 97 Room Air I/O 09/09/16 09/09/16 09/09/16 09/10/16 09/10/16 09/10/16 07:00 15:00 23:00 07:00 15:00 23:00 Intake Total 250 ml Balance 250 ml Intake Oral 250 ml Result Diagram: 09/09/16 1050 09/09/16 1050 Imaging Last Impressions Chest X-Ray 09/09/16 1050 Signed Impressions: Service Date/Time: August 10:54 - CONCLUSION: 1. No active disease. Mildly tortuous aorta. Remote, healed right clavicle fracture. Chan Llamas MD CT Angiography 09/09/16 1050 Signed Impressions: Service Date/Time: August 12:02 - CONCLUSION: No evidence of pulmonary embolism. Lalo Mdeellin MD Head Magnetic Resonance Angiography 09/09/16 0000 Signed Impressions: Service Date/Time: August 17:18 - CONCLUSION: Normal examination. Lalo Medellin MD Head CT 09/09/16 0000 Signed Impressions: Service Date/Time: August 11:55 - CONCLUSION: Normal examination. Lalo Medellin MD Carotid Artery Ultrasound 09/09/16 0000 Signed Impressions: Service Date/Time: August 15:47 - CONCLUSION: No evidence of flow-limiting carotid stenosis. Lalo Medellin MD Brain MRI 09/09/16 0000 Signed Impressions: Service Date/Time: August 17:18 - CONCLUSION: Normal examination. Lalo Medellin MD Objective Remarks GENERAL: Well-developed well-nourished. In no acute distress. SKIN: Warm and dry. No lesions noted. HEENT: Normocephalic. Pupils equal and round. Mucous membranes pink and moist. CARDIOVASCULAR: Regular rate and rhythm. No murmur appreciated. RESPIRATORY: No accessory muscle use. Clear to auscultation. Breath sounds equal bilaterally. GASTROINTESTINAL: Abdomen soft, non-tender, nondistended. Bowel sounds x4. MUSCULOSKELETAL: No obvious deformities. No clubbing or cyanosis. Trace edema. Left anterior deltoid muscle tender to palpation at the inferior aspect. NEUROLOGICAL: Awake and alert. No focal neurological deficits. Moves upper and lower extremities spontaneously. Normal speech. PSYCHIATRIC: Slightly anxious mood and affect; insight and judgment normal. A/P Problem List: (1) TIA (transient ischemic attack) ICD Code: G45.9 Status: Acute (2) Left facial numbness ICD Code: R20.0 Status: Acute (3) Atypical chest pain ICD Code: R07.89 Status: Acute (4) HIV disease ICD Code: B20 Status: Chronic Assessment and Plan 61 years old man with TIA/Facial paresthesia: Treatment per stroke protocol -Continue with aspirin -Lipid profile reviewed, start low-dose statin therapy -NIHSS, Neuro checks, Monitor on telemetry -PT evaluation -HgbA1c pending -Carotid U/S with no significant stenosis -Head CT 09/09/16 reviewed and normal examination. -Brain MRI/MRA reviewed and normal -Check echocardiogram and Telemetry; consider Holter monitoring -Neurology consulted, and agrees with workup, recommends aspirin, statin, blood pressure control. -BP is controlled Atypical chest pain Suspect musculoskeletal as pain is reproducible to palpation. -CT angiography reviewed with no evidence of pulmonary embolism. -Chest x-ray reviewed by me No active disease. Mildly tortuous aorta. -ACS ruled out per protocol with serial cardiac enzyme and EKGs -Continue aspirin, statin. Nitroglycerin sublingual when necessary Questionable Newly diagnosed CHF as of 09/08/16 Patient complains of dyspnea on exertion and slight lower extremity swelling, however denies orthopnea. -BNP of 17 and chest x-ray without any evidence of pulmonary congestion therefore diagnosis of CHF is unclear, checking echocardiogram -Holding Lasix for now as patient appears euvolemic HIV Continue outpatient medications DVT prophylaxis: Bilateral SCDs GI prophylaxis: PPI Discharge Planning Follow-up results of echocardiogram. If echo is unremarkable, possible discharge planning later today. Rodger Healy September 10, 2016 08:54
[2016-09-10] MEDS ORDERED: NON-FORMULARY DRUG (Elvitegravir-Cobicistat-Emtricitabin-Tenofvir (Genvoya) 1 TAB) PO SCH (09:00)
[2016-09-10] MEDS ORDERED: PT:GENVOYA PO SCH (09:00)
[2016-09-10] MEDS ORDERED: ENOXAPARIN SODIUM 40 MG/0.4 ML SYRINGE SQ SCH (09:00)
[2016-09-10] MEDS ORDERED: ASPIRIN EC 81 MG TABEC PO SCH (09:00)
[2016-09-10] MEDS ORDERED: DARUNAVIR 800 MG TAB PO SCH (09:00)
[2016-09-10 11:21] LABS: HEMOGLOBIN A1a 0.9 %; HEMOGLOBIN A1b 1.6 %; HEMOGLOBIN Ao 86.4 %; HEMOGLOBIN LA1C 1.9 %; HEMOGLOBIN P3 4.9 %
--- NOTE | 2016-09-10 11:35 | EC ---
Study Study Date:09/10/2016 STUDY CONCLUSIONS SUMMARY - Procedure narrative: Transthoracic echocardiography. Image quality was fair. Scanning was performed from the parasternal, apical, and subcostal acoustic windows. - Left ventricle: The cavity size was normal. Wall thickness was normal. Systolic function was normal. The estimated ejection fraction was in the range of 55% to 60%. Wall motion was normal; there were no regional wall motion abnormalities. - Tricuspid valve: Trace regurgitation. If LV function is below 40, please consider prescribing an ACEI or ARB or document rationale for non-use. PROCEDURE DATA STUDY STATUS: Elective. Procedure: Transthoracic echocardiography. Image quality was fair. Scanning was performed from the parasternal, apical, and subcostal acoustic windows. Study completion: The patient tolerated the procedure well. Transthoracic echocardiography. M-mode, complete 2D, complete spectral Doppler, and color Doppler. Patient status: Inpatient. CARDIAC ANATOMY LEFT VENTRICLE: The cavity size was normal. Wall thickness was normal. Systolic function was normal. The estimated ejection fraction was in the range of 55% to 60%. Wall motion was normal; there were no regional wall motion abnormalities. AORTIC VALVE: Trileaflet; normal thickness leaflets. Doppler: Transvalvular velocity was within the normal range. There was no stenosis. No regurgitation. AORTA: Aortic root: The aortic root was normal in size. MITRAL VALVE: Structurally normal valve. Doppler: Transvalvular velocity was within the normal range. There was no evidence for stenosis. No regurgitation. LEFT ATRIUM: The atrium was normal in size. RIGHT VENTRICLE: The cavity size was normal. Wall thickness was normal. PULMONIC VALVE: Doppler: Transvalvular velocity was within the normal range. There was no evidence for stenosis. No regurgitation. TRICUSPID VALVE: Structurally normal valve. Doppler: Transvalvular velocity was within the normal range. Trace regurgitation. PULMONARY ARTERY: The main pulmonary artery was normal-sized. Systolic pressure was within the normal range. RIGHT ATRIUM: The atrium was normal in size. PERICARDIUM: There was no pericardial effusion. SYSTEMIC VEINS: Inferior vena cava: The vessel was normal in size. BASIC MEASUREMENTS ADULT Normal Left ventricle LV internal dimension, ED, chordal level, 47.7 mm 43-52 PLAX LV internal dimension, ES, chordal level, 37.2 mm 23-38 PLAX Fractional shortening, chordal level, PLAX *22 % >29 LV posterior wall thickness, ED 8.24 mm IVS/LVPW ratio, ED *1.36 <1.3 Ventricular septum Septal thickness, ED 11.2 mm Aortic valve Leaflet separation 25 mm 15-26 Left atrium Anterior-posterior dimension 37 mm Right ventricle RV internal dimension, ED, PLAX 23.2 mm 19-38 BASIC MEASUREMENTS ADULT Normal Aortic valve Leaflet separation 25 mm 15-26 Aorta Root diameter, ED *41 mm 20-37 DOPPLER MEASUREMENTS ADULT Normal Mitral valve Peak E-wave velocity 61.2 cm/s Peak A-wave velocity 77.5 cm/s Peak E/A ratio 0.8 Tricuspid valve Regurgitant peak velocity 270 cm/s Peak RV-RA gradient, S 29 mm Hg Maximal regurgitant velocity 270 cm/s LEGEND: Mean values are shown as u=mean value. Asterisk (*) valdez values outside specified normal range. Prepared and signed by Juan Diego Green [id number]
[2016-09-10 12:00] VITALS: BP 116/74; PULSE 66; RESP 18; TEMP 98.2; O2SAT 96
[2016-09-10] MEDS ORDERED: FURO20TA PO (12:31)
[2016-09-10] MEDS ORDERED: LIPI10TA PO (12:31)
[2016-09-10] MEDS ORDERED: ASPI-110 PO (12:31)
--- NOTE | 2016-09-10 14:25 | EKG ---
Date Performed: 09/09/2016 Time Performed: 23:14:00 PTAGE: 61 years EKG: Sinus rhythm BORDERLINE LEFT AXIS DEVIATION INCOMPLETE RIGHT BUNDLE BRANCH BLOCK BORDERLINE ECG Compared to prior tracing no significant change PREVIOUS TRACING : 09/09/2016 17.10 DOCTOR: Clem Fowler Interpretating Date/Time 09/10/2016 14:22:08
--- NOTE | 2016-09-10 14:26 | EKG ---
Date Performed: 09/09/2016 Time Performed: 17:10:02 PTAGE: 61 years EKG: Sinus rhythm INCOMPLETE RIGHT BUNDLE BRANCH BLOCK BORDERLINE ECG Compared to prior tracing no significant change PREVIOUS TRACING : 09/09/2016 10.41 DOCTOR: Clem Fowler Interpretating Date/Time 09/10/2016 14:22:16
[2016-09-10] MEDS ORDERED: ATORVASTATIN 20 MG TAB PO SCH (21:00)
== END 2016-09-10 15:42 | disposition home or self-care (01) ==
LOC: NEPE 10:37 → NEDA 12:46 → NEPHCDU 15:49
PROVIDERS: ADMIT Internal Medicine; ATTEND Internal Medicine
DX: R07.89 Other chest pain (principal); G45.9 Transient cerebral ischemic attack, unspecified; I11.0 Hypertensive heart disease with heart failure; I50.9 Heart failure, unspecified; R06.02 Shortness of breath; B20 Human immunodeficiency virus [HIV] disease; Z79.899 Other long term (current) drug therapy
CPT/HCPCS: 70450; 70544; 70551; 71010; 71275; 80053; 80061; 82550; 82948; 83036; 83735; 83880; 84484; 85025; 85610; 85730; 93005; 93306; 93880; 97162; 99285; G0378; G8987; G8988; J1650; Q9967